=== PATIENT | male | born 1980 | race Two or more races ===

== ENCOUNTER 2024-02-14 14:08 | Emergency (ER) | payer OTHER ==
[~2024-02-14] VITALS: Ht 177.8 cm; Wt 80.7 kg
== END 2024-02-14 18:47 | disposition home or self-care (01) ==
LOC: ER 14:10
DX: S63.632A Sprain of interphalangeal joint of right middle finger, initial encounter (principal); X58.XXXA Exposure to other specified factors, initial encounter; Y93.89 Activity, other specified; Y92.89 Other specified places as the place of occurrence of the external cause; Y99.9 Unspecified external cause status